=== PATIENT | male | born 1995 | race African-American/Black ===

== ENCOUNTER 2018-05-16 09:27 | Emergency (ER) | payer MEDICAID ==
[~2018-05-16] VITALS: Ht 180.3 cm; Wt 97.5 kg
[2018-05-16 09:27] VITALS: BP 135/88
--- NOTE | 2018-05-16 09:35 | NUR ---
PT CAME IN TO BE CHECKED FOR CHLAYMIDIA DUE TO PARTNER TELLING HIM TWO DAYS AGO THAT SHE WAS DX WITH IT. NO PAIN OR SYMPTOMS AT THIS TIMEVSS; PATIENT POSITIONED FOR COMFORT; HOB ELEVATED; BEDRAILS UP X1; BED DOWN. ER MD MADE AWARE OF PT STATUS.
--- NOTE | 2018-05-16 09:45 | NUR ---
PT AMBULATED TO BED 11
[2018-05-16] MEDS ORDERED: cefTRIAXone 1,000 MG in LIDOCAINE 1% ***ER ONLY *** 2.1 ML IM ONE (10:35)
[2018-05-16] MEDS ORDERED: LEVOFLOXACIN 500 MG TAB PO ONE (10:35)
[2018-05-16] MEDS ORDERED: cefTRIAXone 1,000 MG VIAL ONE (10:54)
[2018-05-16] MEDS ORDERED: LIDOCAINE MPF 1% 5mL VIAL ONE (10:55)
--- NOTE | 2018-05-16 11:20 | NUR ---
Patient discharged with v/s stable. Written and verbal after care instructions given and explained. Patient verbalized understanding. Ambulatory with steady gait. All questions addressed prior to discharge. Advised to follow up with PMD.
[2018-05-16 11:33] VITALS: BP 135/88
== END 2018-05-16 11:20 | disposition home or self-care (01) ==
LOC: MED 09:27
DX: Z20.2 Contact with and (suspected) exposure to infections with a predominantly sexual mode of transmission (principal)
CPT/HCPCS: 96372; 99283; J0696; J2001

== ENCOUNTER 2018-06-18 11:16 | Emergency (ER) | payer MEDICAID ==
[~2018-06-18] VITALS: Ht 180.3 cm; Wt 97.1 kg
[2018-06-18 11:26] VITALS: BP 144/68
--- NOTE | 2018-06-18 12:00 | NUR ---
PT C/O COUGH X 5 WEEKS, PT WAS SEEN 3WKS AGO PCP GIVEN PROMETHAZINE DM AND NOT GET ANY BETTER. PT STATES 8/10 PAIN IN CHEST AND BACK FROM COUGHING. LUNG SOUNDS CLEAR IN ALL FILEDS.
[2018-06-18 12:57] VITALS: BP 144/68
== END 2018-06-18 12:56 | disposition home or self-care (01) ==
LOC: MED 11:16
DX: R05 Cough (principal); R06.02 Shortness of breath
CPT/HCPCS: 99283